=== PATIENT | female | born 1970 | race Caucasian/White ===

== ENCOUNTER 2018-08-24 15:28 | Emergency (ER) | payer OTHER ==
[~2018-08-24] VITALS: Ht 160 cm; Wt 66.2 kg
[2018-08-24] MEDS ORDERED: ATENOLOL50 MG (15:44)
[2018-08-24] MEDS ORDERED: IBUPROFEN800 MG PO (18:37)
[2018-08-24] MEDS ORDERED: NORFLEX100MG PO (18:37)
== END 2018-08-24 18:52 | disposition home or self-care (01) ==
LOC: ER 15:28
DX: S83.8X2A Sprain of other specified parts of left knee, initial encounter (principal); X50.3XXA Overexertion from repetitive movements, initial encounter; Y93.89 Activity, other specified; Y92.89 Other specified places as the place of occurrence of the external cause; Y99.8 Other external cause status